=== PATIENT | female | born 1940 | race Caucasian/White ===

== ENCOUNTER 2017-08-07 06:54 | Day surgery (SDC) | payer BC, MEDICARE ==
[~2017-08-07 06:54] MED LIST: Cefuroxime 10 MG/ML SYRINGE EYELF SCH; Lidocaine 1% PF 2 ML SDV INJECT SCH; Pilocarpine 4% Ophth Soln 15 ML Bot EYELF SCH
[2017-08-07] MEDS: Polymyxin B/Trimethoprim 10 ML Bottle EYELF SCH ×3 (07:06→08:31)
[2017-08-07] MEDS: Brimonidine 0.2% Ophth Soln 5 ML Bottle EYELF SCH ×3 (07:11→08:31)
[2017-08-07] MEDS: Phenylephrine 2.5% Ophth Soln 2 ML Bot EYELF SCH ×5 (07:16→08:09)
[2017-08-07] MEDS: Tropicamide 1% Ophth Soln 3 ML Bottle EYELF SCH ×4 (07:21→07:55)
--- NOTE | 2017-08-07 07:46 | PCM.PREANE ---
Preanesthetic Assessment - Procedure Proposed Procedure: Left eye cataract extraction - Anesthesia/Transfusion/Family Hx Anesthesia History: Prior Anesthesia Without Reaction Family History of Anesthesia Reaction: No Transfusion History: No Prior Transfusion(s) - Review of Systems General: No Symptoms Pulmonary: No Symptoms Cardiovascular: No Symptoms Gastrointestinal: No Symptoms Neurological: No Symptoms Other: Reports: None - Physical Assessment NPO Status Date: 08/06/17 NPO Status Time: 20:00 O2 Sat by Pulse Oximetry: 98 Respiratory Rate: 16 Vital Signs: Last Vital Signs Temp 36.2 C 08/07/17 07:00 Pulse 59 L 08/07/17 07:00 Resp 16 08/07/17 07:00 BP 194/82 H 08/07/17 07:00 Pulse Ox 98 08/07/17 07:00 Height: 1.52 m Weight: 74.389 kg ASA Class: 2 Mental Status: Alert & Oriented x3 Airway Class: Mallampati = 2 Dentition: Reports: Missing Tooth/Teeth Thyro-Mental Finger Breadths: 3 Mouth Opening Finger Breadths: 3 ROM/Head Extension: Full Lungs: Clear to Auscultation, Normal Respiratory Effort Cardiovascular: Regular Rate, Regular Rhythm - Allergies Allergies/Adverse Reactions: Allergies Allergy/AdvReac Type Severity Reaction Status Date / Time No Known Allergies Allergy Verified 08/05/17 10:02 - Blood Blood Available: No Product(s) Available: None - Anesthesia Plan Pre-Op Medication Ordered: None - Acknowledgements Anesthesia Type Planned: MAC Pt an Appropriate Candidate for the Planned Anesthesia: Yes Alternatives and Risks of Anesthesia Discussed w Pt/Guardian: Yes Pt/Guardian Understands and Agrees with Anesthesia Plan: Yes PreAnesthesia Questionnaire - HOME MEDS Home Medications: Home Meds Multivitamin [Multivitamins] 1 cap PO DAILY 08/06/17 [History] - CURRENT (IN HOUSE) MEDS Current Meds: Current Medications Brimonidine Tartrate (Alphagan 0.2% Ophth Soln) 0 ml EYELF ASDIRECTED CIRILO Stop: 08/07/17 18:00 Last Admin: 08/07/17 07:11 Dose: 1 drop Cefuroxime Sodium (Zinacef) 0 mg EYELF ASDIRECTED CIRILO Stop: 08/07/17 18:00 Lidocaine HCl (Xylocaine-Mpf 1%) 10 ml INJECT ASDIRECTED CIRILO Stop: 08/07/17 18:00 Phenylephrine HCl (Ti-Synephrine 2.5% Ophth Soln) 0 ml EYELF ASDIRECTED CIRILO Stop: 08/07/17 18:00 Last Admin: 08/07/17 07:34 Dose: 1 drop Pilocarpine HCl (Pilocar 4% Ophth Soln) 0 ml EYELF ASDIRECTED CIRILO Stop: 08/07/17 18:00 Polymyxin/Trimethoprim Sulfate (Polytrim Ophth Soln) 0 ml EYELF ASDIRECTED CIRILO Stop: 08/07/17 18:00 Last Admin: 08/07/17 07:43 Dose: 1 drop Tetracaine HCl (Tetracaine 0.5% Steri-Unit Lizzie) 0 ml EYELF ASDIRECTED CIRILO Stop: 08/07/17 18:00 Tropicamide (Mydriacyl 1% Ophth Soln) 0 ml EYELF ASDIRECTED CIRILO Stop: 08/07/17 18:00 Last Admin: 08/07/17 07:38 Dose: 1 drop
[2017-08-07] MEDS: Tetracaine HCl/PF 0.5% 4 ML Bottle EYELF SCH ×2 (08:04→08:20)
--- NOTE | 2017-08-07 08:38 | PCM48HPAN ---
Post Anesthesia Note - EVALUATION WITHIN 48HRS OF ANESTHETIC Vital Signs in Normal Range: Yes Patient Participated in Evaluation: Yes Respiratory Function Stable: Yes Airway Patent: Yes Cardiovascular Function Stable: Yes Hydration Status Stable: Yes Pain Control Satisfactory: Yes Nausea and Vomiting Control Satisfactory: Yes Mental Status Recovered: Yes
== END 2017-08-07 08:42 | disposition home or self-care (01) ==
LOC: JD.SDS 06:54
PROVIDERS: ATTEND Ophthalmology
DX: H25.813 Combined forms of age-related cataract, bilateral (principal); H35.363 Drusen (degenerative) of macula, bilateral; H35.3131 Nonexudative age-related macular degeneration, bilateral, early dry stage; H02.834 Dermatochalasis of left upper eyelid; H02.831 Dermatochalasis of right upper eyelid; H16.103 Unspecified superficial keratitis, bilateral; H16.223 Keratoconjunctivitis sicca, not specified as Sjogren's, bilateral; Z79.899 Other long term (current) drug therapy
CPT/HCPCS: 66984; C1780; J0697; J2001; A9270-GY

== ENCOUNTER 2017-10-09 07:01 | Day surgery (SDC) | payer BC, MEDICARE ==
[~2017-10-09 07:01] MED LIST changes: -Cefuroxime 10 MG/ML SYRINGE EYELF SCH; +Cefuroxime 10 MG/ML SYRINGE EYERT SCH; -Pilocarpine 4% Ophth Soln 15 ML Bot EYELF SCH; +Pilocarpine 4% Ophth Soln 15 ML Bot EYERT SCH; +Tropicamide 1% Ophth Soln 3 ML Bottle EYERT SCH
--- NOTE | 2017-10-09 07:45 | PCM.PREANE ---
Preanesthetic Assessment - Procedure Proposed Procedure: Right eye cataract extraction with IOL - Anesthesia/Transfusion/Family Hx Anesthesia History: Prior Anesthesia Without Reaction Family History of Anesthesia Reaction: No Transfusion History: No Prior Transfusion(s) - Review of Systems General: No Symptoms Pulmonary: No Symptoms Cardiovascular: No Symptoms Gastrointestinal: No Symptoms Neurological: No Symptoms Other: Reports: None - Physical Assessment NPO Status Date: 10/08/17 NPO Status Time: 21:00 Pulse: 52 O2 Sat by Pulse Oximetry: 98 Respiratory Rate: 16 Blood Pressure: 181/80 Temperature: 36.1 C Height: 1.52 m Weight: 74.389 kg ASA Class: 2 Mental Status: Alert & Oriented x3 Airway Class: Mallampati = 3 Dentition: Reports: Dentures (upper and lower ) Thyro-Mental Finger Breadths: 3 Mouth Opening Finger Breadths: 3 ROM/Head Extension: Full Lungs: Clear to Auscultation, Normal Respiratory Effort Cardiovascular: Regular Rate, Regular Rhythm - Allergies Allergies/Adverse Reactions: Allergies Allergy/AdvReac Type Severity Reaction Status Date / Time No Known Allergies Allergy Verified 10/08/17 13:19 - Blood Blood Available: No Product(s) Available: None - Anesthesia Plan Pre-Op Medication Ordered: None - Acknowledgements Anesthesia Type Planned: MAC Pt an Appropriate Candidate for the Planned Anesthesia: Yes Alternatives and Risks of Anesthesia Discussed w Pt/Guardian: Yes Pt/Guardian Understands and Agrees with Anesthesia Plan: Yes PreAnesthesia Questionnaire - HOME MEDS Home Medications: Home Meds Multivitamin [Multivitamins] 1 cap PO DAILY 08/06/17 [History] - CURRENT (IN HOUSE) MEDS Current Meds: Current Medications Brimonidine Tartrate (Alphagan 0.2% Ophth Soln) 0 ml EYERT ASDIRECTED CIRILO Stop: 10/09/17 18:00 Cefuroxime Sodium (Zinacef) 0 mg EYERT ASDIRECTED CIRILO Stop: 10/09/17 18:00 Lidocaine HCl (Xylocaine-Mpf 1%) 0 ml INJECT ASDIRECTED CIRILO Stop: 10/09/17 18:00 Phenylephrine HCl (Ti-Synephrine 2.5% Ophth Soln) 0 ml EYERT ASDIRECTED CIRILO Stop: 10/09/17 18:00 Pilocarpine HCl (Pilocar 4% Ophth Soln) 0 ml EYERT ASDIRECTED CIRILO Stop: 10/09/17 18:00 Polymyxin/Trimethoprim Sulfate (Polytrim Ophth Soln) 0 ml EYERT ASDIRECTED CIRILO Stop: 10/09/17 18:00 Tetracaine HCl (Tetracaine 0.5% Steri-Unit Lizzie) 0 ml EYERT ASDIRECTED CIRILO Stop: 10/09/17 18:00 Tropicamide (Mydriacyl 1% Ophth Soln) 0 ml EYERT ASDIRECTED CIRILO Stop: 10/09/17 18:00 Discontinued Medications Tropicamide (Mydriacyl 1% Ophth Soln) 0 ml EYERT ASDIRECTED CIRILO Stop: 10/09/17 18:00
[2017-10-09] MEDS: Polymyxin B/Trimethoprim 10 ML Bottle EYERT SCH ×3 (08:01→09:57)
[2017-10-09] MEDS: Brimonidine 0.2% Ophth Soln 5 ML Bottle EYERT SCH ×3 (08:06→09:57)
[2017-10-09] MEDS: Phenylephrine 2.5% Ophth Soln 2 ML Bot EYERT SCH ×5 (08:11→09:38)
[2017-10-09] MEDS: Tropicamide 1% Ophth Soln 15 ML Bottle EYERT SCH ×4 (08:17→09:01)
[2017-10-09] MEDS: Tetracaine HCl/PF 0.5% 4 ML Bottle EYERT SCH ×2 (09:27→09:48)
== END 2017-10-09 10:18 | disposition home or self-care (01) ==
LOC: JD.SDS 07:01
PROVIDERS: ATTEND Ophthalmology
DX: H25.811 Combined forms of age-related cataract, right eye (principal); H02.834 Dermatochalasis of left upper eyelid; H02.831 Dermatochalasis of right upper eyelid; Z79.899 Other long term (current) drug therapy; Z98.42 Cataract extraction status, left eye; Z96.1 Presence of intraocular lens
CPT/HCPCS: 66984; C1780; J0697; A9270-GY; J2001

== ENCOUNTER 2018-08-15 09:04 | Emergency (ER) | payer BC, MEDICARE ==
[2018-08-15] MEDS ORDERED: Ondansetron 4 MG/2 ML SDV IVPUSH ONE (09:46)
[2018-08-15] MEDS ORDERED: Sodium Chloride 0.9% 10 ML Syringe FLUSH PRN (09:46)
[2018-08-15] MEDS ORDERED: Sodium Chloride 0.9% 500 ML IV SCH (10:00)
--- NOTE | 2018-08-15 12:12 | EDM.PDOC ---
ED HPI GENERAL MEDICAL PROBLEM - General Chief Complaint: Neurological Problem Stated Complaint: DIZZY Time Seen by Provider: 08/15/18 09:21 Source of Information: Reports: Patient History Limitations: Reports: No Limitations - History of Present Illness INITIAL COMMENTS - FREE TEXT/NARRATIVE: The patient presents with dizziness. This started on . She says every time she gets up to move around things start spinning. She has nausea with it but no vomiting but she has not been eating or drinking much since then. She has no headache but she does have right ear pain. She has been putting an oil in that right ear. She has no headache, fever, chills, cough, chest pain, shortness of breath, abdominal pain, dysuria or hematuria. She has no diarrhea. She has never had dizziness like this before. She has not been able to work since the dizziness started. 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 Onset: Gradual Duration: Day(s): (3) Location: Reports: Other (right ear) Quality: Reports: Ache Severity: Mild Improves with: Reports: None Worsens with: Reports: None Associated Symptoms: Reports: Nausea/Vomiting. Denies: Chest Pain, Cough, Fever /Chills, Headaches, Shortness of Breath - Related Data Allergies Allergy/AdvReac Type Severity Reaction Status Date / Time No Known Allergies Allergy Verified 08/15/18 09:21 Home Meds: Home Meds Multivitamin [Multivitamins] 1 cap PO DAILY 08/06/17 [History] Past Medical History HEENT History: Reports: Cataract Other HEENT History: dentures upper and lower Other Musculoskeletal History: left first digit - Past Surgical History HEENT Surgical History: Reports: Cataract Surgery Female Surgical History: Reports: Hysterectomy Social & Family History - Tobacco Use Smoking Status *Q: Never Smoker Second Hand Smoke Exposure: No - Caffeine Use Caffeine Use: Reports: None - Recreational Drug Use Recreational Drug Use: No ED ROS GENERAL - Review of Systems Review Of Systems: See Below Constitutional: Reports: No Symptoms HEENT: Reports: Ear Pain (right) Respiratory: Reports: No Symptoms Cardiovascular: Reports: No Symptoms Endocrine: Reports: No Symptoms GI/Abdominal: Reports: Nausea. Denies: Abdominal Pain, Diarrhea, Vomiting : Reports: No Symptoms Musculoskeletal: Reports: No Symptoms Skin: Reports: No Symptoms Neurological: Reports: Dizziness. Denies: Headache ED EXAM, NEURO - Physical Exam Exam: See Below Exam Limited By: No Limitations General Appearance: Alert, No Apparent Distress Eye Exam: Right Eye: Nystagmus Ears: Normal External Exam, Normal Canal, Other (Mild fluid behind the right TM with no erythema) Nose: Normal Inspection Head Exam: Atraumatic, Normocephalic Neck: Normal Inspection Respiratory/Chest: No Respiratory Distress, Lungs Clear, Normal Breath Sounds Cardiovascular: Regular Rate, Rhythm, No Edema, No Murmur GI/Abdominal: Soft, Non-Tender, No Organomegaly, No Mass Neurological: Alert, No Motor/Sensory Deficits, Oriented x 3 Back Exam: Normal Inspection Extremities: Normal Inspection Skin Exam: Warm, Dry EKG INTERPRETATION EKG Date: 08/15/18 Time: 09:54 Rhythm: NSR Rate (Beats/Min): 68 [place]: Normal P-Wave: Present QRS: Normal ST-T: Normal QT: Normal EKG Interpretation Comments: Q waves in the inferior leads Course - Vital Signs Last Recorded V/S: Last Vital Signs Temp 97.8 F 08/15/18 09:19 Pulse 71 08/15/18 09:19 Resp 16 08/15/18 09:19 BP 142/72 H 08/15/18 09:19 Pulse Ox 96 08/15/18 09:19 - Orders/Labs/Meds Orders: Active Orders 24 hr Category Date Time Status Cardiac Monitoring [RC] . DIRECTED Care 08/15/18 09:46 Active EKG Documentation Completion [RC] STAT Care 08/15/18 09:47 Active Peripheral IV Care [RC] . DIRECTED Care 08/15/18 09:47 Active Head wo Cont [CT] Stat Exams 08/15/18 09:48 Taken CULTURE BLOOD [BC] Stat Lab 08/15/18 12:05 Ordered CULTURE BLOOD [BC] Stat Lab 08/15/18 12:05 Ordered LACTIC ACID [CHEM] Stat Lab 08/15/18 12:05 Ordered Sodium Chloride 0.9% [Normal Saline] 1,000 ml Med 08/15/18 12:15 Active IV ASDIRECTED Sodium Chloride 0.9% [Normal Saline] 500 ml Med 08/15/18 10:00 Active IV .BOLUS Sodium Chloride 0.9% [Saline Flush] Med 08/15/18 09:46 Active 10 ml FLUSH ASDIRECTED PRN Blood Culture x2 Reflex Set [OM.PC] Stat [facility] 08/15/18 12:05 Ordered ED Antiemetic Medication Reflex [OM.PC] Stat Ot 08/15/18 09:47 Ordered Peripheral IV Insertion Adult [OM.PC] Stat Ot 08/15/18 09:46 Ordered Medication Orders Sodium Chloride (Normal Saline) 500 mls @ 1,000 mls/hr IV .BOLUS CIRILO Last Admin: 08/15/18 10:38 Dose: 1,000 mls/hr Sodium Chloride (Normal Saline) 1,000 mls @ 150 mls/hr IV ASDIRECTED CIRILO Sodium Chloride (Saline Flush) 10 ml FLUSH ASDIRECTED PRN PRN Reason: Keep Vein Open Last Admin: 08/15/18 10:39 Dose: 10 ml Labs: Laboratory Tests 08/15/18 08/15/18 Range/Units 10:11 10:11 WBC 19.00 H (3.98-10.04) K/mm3 RBC 4.32 (3.98-5.22) M/mm3 Hgb 12.7 (11.2-15.7) gm/L Hct 36.3 (34.1-44.9) % MCV 84.0 (79.4-94.8) fl MCH 29.4 (25.6-32.2) pg MCHC 35.0 (32.2-35.5) g/dl RDW Std Deviation 42.7 (36.4-46.3) fL Plt Count 152 L (182-369) K/mm3 MPV 11.9 (9.4-12.3) fl Neut % (Auto) 83.1 H (34.0-71.1) % Lymph % (Auto) 5.1 L (19.3-51.7) % Simpson % (Auto) 4.7 (4.7-12.5) % Eos % (Auto) 1.3 (0.7-5.8) Baso % (Auto) 0.2 (0.1-1.2) % Neut # (Auto) 15.79 H (1.56-6.13) K/mm3 Lymph # (Auto) 0.97 L (1.18-3.74) K/mm3 Simpson # (Auto) 0.89 H (0.24-0.36) K/mm3 Eos # (Auto) 0.24 (0.04-0.36) K/mm3 Baso # (Auto) 0.04 (0.01-0.08) K/mm3 Manual Slide Review Abnormal smear Sodium 135 L (136-145) mEq/L Potassium 3.9 (3.5-5.1) mEq/L Chloride 98 (98-107) mEq/L Carbon Dioxide 22 (21-32) mEq/L Anion Gap 18.9 H (5-15) BUN 93 H (7-18) mg/dL Creatinine 6.5 H (0.55-1.02) mg/dL Est Cr Clr Drug Dosing 4.96 mL/min Estimated GFR (MDRD) 6 (>60) mL/min BUN/Creatinine Ratio 14.3 (14-18) Glucose 122 H (83-115) mg/dL Calcium 8.8 (8.5-10.1) mg/dL Total Bilirubin 0.9 (0.2-1.0) mg/dL AST 32 (15-37) U/L ALT 37 (14-59) U/L Alkaline Phosphatase 162 H (46-116) U/L Troponin I < 0.017 (0.00-0.056) ng/mL Total Protein 6.6 (6.4-8.2) g/dl Albumin 2.5 L (3.4-5.0) g/dl Globulin 4.1 gm/dL Albumin/Globulin Ratio 0.6 L (1-2) Meds: Medications Generic Name Dose Route Start Last Admin Trade Name Freq PRN Reason Stop Dose Admin Sodium Chloride 500 mls @ 1,000 mls/hr 08/15/18 10:00 08/15/18 10:38 Normal Saline IV 1,000 mls/hr .BOLUS CIRILO Administration Sodium Chloride 1,000 mls @ 150 mls/hr 08/15/18 12:15 Normal Saline IV ASDIRECTED CIRILO Sodium Chloride 10 ml 08/15/18 09:46 08/15/18 10:39 Saline Flush FLUSH 10 ml ASDIRECTED PRN Administration Keep Vein Open Discontinued Medications Generic Name Dose Route Start Last Admin Trade Name Freq PRN Reason Stop Dose Admin Meclizine HCl 25 mg 08/15/18 09:48 08/15/18 10:39 Antivert PO 08/15/18 09:49 25 mg ONETIME ONE Administration Ondansetron HCl 4 mg 08/15/18 09:46 08/15/18 10:39 Zofran IVPUSH 08/15/18 09:47 4 mg ONETIME ONE Administration - Re-Assessments/Exams Free Text/Narrative Re-Assessment/Exam: 08/15/18 12:17 I ordered an IV NS 1L bolus, EKG, zofran 4mg IV, antivert 25mg by mouth, CT of her head and labs. Her EKG shows a NSR with Q waves in the inferior leads. The CT of her head shows senescent changes but nothing acute. Her WBC is elevated at 19. Her Na is a little low at 135. Her K was normal at 3.9. Her anion gap is elevated at 18.9. Her BUN is elevated at 93. Her creatinine is very elevated at 6.5. Her GFR is very low at 6. Her glucose is elevated at 122. Her alk phos is elevated at 162. Her troponin is negative. She is in renal failure. She last urinated this morning before coming in. She has not urinated much for the past couple days. She has never had a history of kidney problems. She has no labs here for me to compare to. I feel she needs to be admitted. I called our hospitalist Dr Amezcua and he felt the patient would be better served in [place] where they have nephrology. I called [facility] in [place] and talked with the hospitalist Dr Glaser and he accepted the patient. I did order a lactic acid and blood cultures. I will try to get a UA before she leaves. Departure - Departure Time of Disposition: 12:30 Disposition: DC/Tfer to Acute Hospital 02 Condition: Fair Clinical Impression: Dizziness Renal failure Qualifiers: Renal failure chronicity: acute Acute renal failure type: unspecified Qualified Code(s): N17.9 - Acute kidney failure, unspecified Leukocytosis Qualifiers: Leukocytosis type: unspecified Qualified Code(s): D72.829 - Elevated white blood cell count, unspecified - Discharge Information Referrals: PCP,None [Primary Care Provider] - - My Orders Last 24 Hours: My Active Orders 08/15/18 09:46 Cardiac Monitoring [RC] . DIRECTED Sodium Chloride 0.9% [Saline Flush] 10 ml FLUSH ASDIRECTED PRN Peripheral IV Insertion Adult [OM.PC] Stat 08/15/18 09:47 EKG Documentation Completion [RC] STAT Peripheral IV Care [RC] . DIRECTED ED Antiemetic Medication Reflex [OM.PC] Stat 08/15/18 09:48 Head wo Cont [CT] Stat 08/15/18 10:00 Sodium Chloride 0.9% [Normal Saline] 500 ml IV .BOLUS 08/15/18 12:05 CULTURE BLOOD [BC] Stat CULTURE BLOOD [BC] Stat LACTIC ACID [CHEM] Stat Blood Culture x2 Reflex Set [OM.PC] Stat 08/15/18 12:15 Sodium Chloride 0.9% [Normal Saline] 1,000 ml IV ASDIRECTED - Assessment/Plan Last 24 Hours: My Active Orders 08/15/18 09:46 Cardiac Monitoring [RC] . DIRECTED Sodium Chloride 0.9% [Saline Flush] 10 ml FLUSH ASDIRECTED PRN Peripheral IV Insertion Adult [OM.PC] Stat 08/15/18 09:47 EKG Documentation Completion [RC] STAT Peripheral IV Care [RC] . DIRECTED ED Antiemetic Medication Reflex [OM.PC] Stat 08/15/18 09:48 Head wo Cont [CT] Stat 08/15/18 10:00 Sodium Chloride 0.9% [Normal Saline] 500 ml IV .BOLUS 08/15/18 12:05 CULTURE BLOOD [BC] Stat CULTURE BLOOD [BC] Stat LACTIC ACID [CHEM] Stat Blood Culture x2 Reflex Set [OM.PC] Stat 08/15/18 12:15 Sodium Chloride 0.9% [Normal Saline] 1,000 ml IV ASDIRECTED
[2018-08-15] MEDS ORDERED: Sodium Chloride 0.9% 1,000 ML IV SCH (12:15)
--- NOTE | 2018-08-17 09:07 | CT ---
Head CT Technique: Multiple axial sections through the brain were obtained. Intravenous contrast was not utilized. Comparison: No prior intracranial imaging is available. Findings: Ventricles along with basal cisterns and sulci over the convexities are within normal limits. Minimal areas of diminished density are seen within the periventricular white matter compatible with slight small vessel ischemic demyelination change. No other abnormal parenchymal densities are seen. No evidence of intracranial hemorrhage. No midline shift or mass effect is seen. Bone window settings were reviewed which show the visualized sinuses to appear clear. No acute calvarial abnormality is seen. Impression: 1. Minimal senescent change. 2. No acute intracranial abnormality is appreciated. Diagnostic code #2 I agree with preliminary report from [facility], finalized on 08/15/18, 12:13 PM Central Time
== END 2018-08-15 13:20 ==
LOC: JD.ED 09:04
DX: N17.9 Acute kidney failure, unspecified (principal); D72.829 Elevated white blood cell count, unspecified; R42 Dizziness and giddiness; Z98.49 Cataract extraction status, unspecified eye; Z90.710 Acquired absence of both cervix and uterus
CPT/HCPCS: 36415; 70450; 80053; 81001; 84484; 85025; 87086; 87088; 87186; 93005; 96361; 96374; 99285; A9270; J2405; J7040; 93010

== ENCOUNTER 2020-04-22 04:56 | Emergency (ER) | payer BC ==
[2020-04-22] MEDS ORDERED: Ondansetron 4 MG/2 ML SDV IVPUSH ONE (05:12)
[2020-04-22] MEDS ORDERED: HYDROmorphone 0.5 MG/0.5 ML Syringe IVPUSH ONE ×2 (05:12→06:17)
[2020-04-22] MEDS ORDERED: Sodium Chloride 0.9% 1,000 ML IV SCH (05:15)
--- NOTE | 2020-04-22 05:18 | EDM.PDOC ---
ED HPI GENERAL MEDICAL PROBLEM - General Chief Complaint: Lower Extremity Injury/Pain Stated Complaint: [facility] Time Seen by Provider: 04/22/20 04:56 Source of Information: Reports: Patient History Limitations: Reports: No Limitations - History of Present Illness INITIAL COMMENTS - FREE TEXT/NARRATIVE: Mrs. Tarango is a most pleasant 80-year-old woman who is now brought to the ED by EMS after falling at home, injuring her right hip. She states that her right leg gave out while she was returning from the bathroom early this morning, causing her to fall onto a carpeted floor. She had immediate pain in her right hip and was unable to get up. She called out to her son, who came to her immediately. No prior right hip injury, and the patient denies any other in juries elsewhere, including to her head, buttocks, knees, wrists, etc. She tells me that EMS did not give her any pain medication. The patient's last oral intake was around 17:00 MST last evening. Here in the ED, the patient's initial BP is found to be elevated at 167/90, otherwise, she is hemodynamically stable, afebrile, saturating 97% on room air. The patient tells me that she has not been feeling well after she received a COVID vaccine, otherwise, she denies having a recent fever, chills, sore throat, ear pain, nasal or sinus congestion, cough, dyspnea, chest pain, palpitations, nausea, vomiting, constipation, diarrhea, abdominal pain, urinary symptoms, recent weight gain or weight loss, recent bloody bowel movements or black bowel movements, recent joint aches, headaches, or rashes. The patient's PCP is Dr. Edy Casillas. She states that she has already received an influenza vaccine this season. Right Hip Pain Score (Numeric/FACES): 8 - Related Data Allergies Allergy/AdvReac Type Severity Reaction Status Date / Time No Known Allergies Allergy Verified 04/22/20 05:07 Home Meds: Home Meds Multivitamin [Multivitamins] 1 cap PO DAILY 08/06/17 [History] Past Medical History HEENT History: Reports: Other (See Below) (Dentures) Cardiovascular History: Reports: Hypertension Musculoskeletal History: Reports: Gout, Osteoarthritis Endocrine/Metabolic History: Reports: Hypothyroidism, Obesity/BMI 30+, Vitamin D Deficiency - Past Surgical History HEENT Surgical History: Reports: Cataract Surgery (bilateral), Oral Surgery (dental extractions) Female Surgical History: Reports: Hysterectomy Social & Family History - Tobacco Use Tobacco Use Status *Q: Former Tobacco User Years of Tobacco use: 22 Packs/Tins Daily: 0.1 Month/Year Tobacco Last Used: Quit 1979 - Caffeine Use Caffeine Use: Reports: None - Alcohol Use Alcohol Use History: No - Recreational Drug Use Recreational Drug Use: No - Living Situation & Occupation Living situation: Reports: , with Family (Son) Occupation: Employed ([employer]) Review of Systems - Review of Systems Review Of Systems: Comprehensive ROS is negative, except as noted in HPI. ED EXAM, GENERAL - Physical Exam Exam: See Below Exam Limited By: No Limitations General Appearance: Alert, WD/WN, Mild Distress (appears uncomfortable) Eye Exam: Bilateral Eye: EOMI, Normal Inspection Ears: Normal External Exam, Hearing Grossly Normal Nose: Normal Inspection Throat/Mouth: Normal Inspection, Normal Lips, Normal Voice, No Airway Compromise Head: Atraumatic, Normocephalic Neck: Normal Inspection, Full Range of Motion Respiratory/Chest: No Respiratory Distress, Lungs Clear, Normal Breath Sounds, No Accessory Muscle Use Cardiovascular: Normal Peripheral Pulses, Regular Rate, Rhythm, No Gallop, No JVD, No Murmur, No Rub Peripheral Pulses: 3+: Radial (L), Radial (R) GI/Abdominal: Normal Bowel Sounds, Soft, Non-Tender, No Organomegaly, No Distention, No Abnormal Bruit, No Mass Back Exam: Normal Inspection, Full Range of Motion, NT Extremities: Normal Capillary Refill, Other (The right lower extremity is foreshortened approximately 2 cm compared to the left, and there is mild external rotation of the right foot. The patient reports tenderness to palpation of the anterior and lateral right hip, although not to the posterior. No pain with either traction or compression of the right lower extremity, nor with mild internal and external rotation of the right foot, however, the patient does complain of pain with an attempt at flexion of the right hip after a few degrees. Neurovascular status of the right lower extremity is intact.) Neurological: Alert, Oriented, Normal Cognition, No Motor/Sensory Deficits Psychiatric: Normal Affect Skin Exam: Warm, Dry, Intact, Normal Color, No Rash Course - Vital Signs Last Recorded V/S: Last Vital Signs Temp 36.7 C 04/22/20 05:02 Pulse 70 04/22/20 05:02 Resp 17 04/22/20 05:02 BP 167/90 H 04/22/20 05:02 Pulse Ox 97 04/22/20 05:02 - Orders/Labs/Meds Orders: Active Orders 24 hr Category Date Time Status Insert Yu Catheter [Insert Urinary Catheter] [OM.PC] Care 04/22/20 06:15 Ordered Q24H Urinary Catheter Assessment [RC] ASDIRECTED Care 04/22/20 06:08 Ordered Hip Min 2V or 3V w Pelvis Rt [CR] Stat Exams 04/22/20 05:11 Taken CORONAVIRUS COVID-19 JESSENIA [MOLEC] Stat Lab 04/22/20 06:13 Ordered Sodium Chloride 0.9% [Normal Saline] 1,000 ml Med 04/22/20 05:15 Active IV ASDIRECTED Medication Orders Sodium Chloride (Normal Saline) 1,000 mls @ 100 mls/hr IV ASDIRECTED CIRILO Last Admin: 04/22/20 05:16 Dose: 100 mls/hr Documented by: SONIDO Bonillas: Medications Generic Name Dose Route Start Last Admin Trade Name Freq PRN Reason Stop Dose Admin Sodium Chloride 1,000 mls @ 100 mls/hr 04/22/20 05:15 04/22/20 05:16 Normal Saline IV 100 mls/hr ASDIRECTED CIRILO Administration Discontinued Medications Generic Name Dose Route Start Last Admin Trade Name Freq PRN Reason Stop Dose Admin Hydromorphone HCl 0.5 mg 04/22/20 05:12 04/22/20 05:16 Dilaudid IVPUSH 04/22/20 05:13 0.5 mg ONETIME ONE Administration Hydromorphone HCl 0.5 mg 04/22/20 06:17 Dilaudid IVPUSH 04/22/20 06:18 ONETIME ONE Ondansetron HCl 4 mg 04/22/20 05:12 04/22/20 05:16 Zofran IVPUSH 04/22/20 05:13 4 mg ONETIME ONE Administration - Re-Assessments/Exams Free Text/Narrative Re-Assessment/Exam: 04/22/20 05:13 The patient has likely fractured her right hip. I have ordered x-rays to evaluate, and in the meantime, she will be given some IV Dilaudid, IV Zofran, and IV fluid. We will keep her NPO. 04/22/20 06:02 6-view radiographs of the right hip and pelvis appear to demonstrate a comminuted intertrochanteric fracture of the right hip. There is also bilateral hip arthritis, worse on the right than the left. No pelvic fractures are seen. Formal read per the Radiologist pending. 04/22/20 06:05 X-ray results discussed with the patient. A Yu catheter has been placed. She states that her pain is currently adequately controlled following the Dilaudid. Unfortunately, I do not have any orthopedic coverage today, therefore the patient will need to be transferred to [place]. She prefers [facility]. Have pushed the x-ray images to [facility]. 04/22/20 06:14 Case discussed with Herminia at [facility], at 06:08. Case then discussed with Dr. Lao, Orthopedic Surgeon on-call at [facility], at 06:12. He accepted the patient for transfer to the medical floor, however, if the patient takes a turn for the worse, she is to go to their ED first. The patient will be transported by ground ambulance. Departure - Departure Time of Disposition: 06:16 Disposition: DC/Tfer to Acute Hospital 02 Condition: Fair Clinical Impression: Closed right hip fracture - Discharge Information *PRESCRIPTION DRUG MONITORING PROGRAM REVIEWED*: Not Applicable *COPY OF PRESCRIPTION DRUG MONITORING REPORT IN PATIENT SUE: Not Applicable Referrals: Edy Mahmood MD [Physician] - Forms: ED Department Discharge Sepsis Event Note (ED) - Evaluation Sepsis Screening Result: No Definite Risk - Focused Exam Vital Signs: Vital Signs Temp Pulse Resp BP Pulse Ox 04/22/20 05:02 36.7 C 70 17 167/90 H 97 - My Orders Last 24 Hours: My Active Orders 04/22/20 05:11 Hip Min 2V or 3V w Pelvis Rt [CR] Stat 04/22/20 05:15 Sodium Chloride 0.9% [Normal Saline] 1,000 ml IV ASDIRECTED 04/22/20 06:08 Urinary Catheter Assessment [RC] ASDIRECTED 04/22/20 06:13 CORONAVIRUS COVID-19 JESSENIA [MOLEC] Stat 04/22/20 06:15 Insert Yu Catheter [Insert Urinary Catheter] [OM.PC] Q24H - Assessment/Plan Last 24 Hours: My Active Orders 04/22/20 05:11 Hip Min 2V or 3V w Pelvis Rt [CR] Stat 04/22/20 05:15 Sodium Chloride 0.9% [Normal Saline] 1,000 ml IV ASDIRECTED 04/22/20 06:08 Urinary Catheter Assessment [RC] ASDIRECTED 04/22/20 06:13 CORONAVIRUS COVID-19 JESSENIA [MOLEC] Stat 04/22/20 06:15 Insert Yu Catheter [Insert Urinary Catheter] [OM.PC] Q24H
--- NOTE | 2020-04-23 10:23 | CR ---
Pelvis and right hip: AP view of the pelvis was obtained as well as AP view of the right hip and crosstable lateral view of the right hip. Slightly angulated intertrochanteric fracture is noted within the right hip. Diffuse joint space narrowing is seen within the right hip. Joint space narrowing is noted within the left hip. Osteoporosis is noted. Diffuse soft tissue swelling is noted on the right side. Impression: 1. Degenerative change within both hips. 2. Mildly angulated intratrochanteric fracture within the right hip. Diagnostic code #5
== END 2020-04-22 07:00 ==
LOC: JD.ED 04:56
DX: S72.101A Unspecified trochanteric fracture of right femur, initial encounter for closed fracture (principal); I10 Essential (primary) hypertension; E66.9 Obesity, unspecified; Z68.30 Body mass index [BMI] 30.0-30.9, adult; Z87.891 Personal history of nicotine dependence; Z20.822 Contact with and (suspected) exposure to COVID-19; W18.30XA Fall on same level, unspecified, initial encounter; Y92.002 Bathroom of unspecified non-institutional (private) residence as the place of occurrence of the external cause
CPT/HCPCS: 51702; 73502; 87635; 96374; 96375; 96376; 99285; J1170; J2405; J7030; U0002

== ENCOUNTER 2021-05-28 06:54 | Day surgery (SDC) | payer BC, MEDICARE, OTHER ==
[~2021-05-28 06:54] MED LIST changes: -Cefuroxime 10 MG/ML SYRINGE EYERT SCH; +Lactated Ringers 1,000 ML IV SCH; -Lidocaine 1% PF 2 ML SDV INJECT SCH; +Lidocaine 1%/Sod Bicarbonate in NS 8.4% 1 ML Syringe IDERM PRN; +Morphine 8 MG, EPINEPHrine 0.3 MG, Cefuroxime 750 MG, Ketorolac 30 MG, Sodium Chloride ... PRN; -Pilocarpine 4% Ophth Soln 15 ML Bot EYERT SCH; +Sodium Chloride 0.9% 10 ML Syringe FLUSH PRN; +Sodium Chloride 0.9% 10 ML Syringe FLUSH SCH; -Tropicamide 1% Ophth Soln 3 ML Bottle EYERT SCH
[2021-05-28] MEDS ORDERED: Lactated Ringers 1,000 ML IV SCH (07:00)
[2021-05-28] MEDS ORDERED: Lidocaine 1% 4 ML ONE (07:21)
[2021-05-28] MEDS ORDERED: Propofol 200 MG/20 ML SDV ONE ×2 (07:21→07:22)
[2021-05-28] MEDS ORDERED: ceFAZolin 1 GM Vial ONE (07:21)
[2021-05-28] MEDS ORDERED: Vancomycin 1 GM SDV ONE (07:23)
[2021-05-28] MEDS ORDERED: ePHEDrine 50 MG/ML SDV ONE (08:38)
[2021-05-28] MEDS ORDERED: Lactated Ringers 1,000 ML ONE ×2 (08:48→10:00)
[2021-05-28] MEDS ORDERED: Ondansetron 4 MG/2 ML SDV IVPUSH PRN (08:58)
[2021-05-28] MEDS ORDERED: diphenhydrAMINE 50 MG/ML SDV IVPUSH PRN (08:58)
[2021-05-28] MEDS ORDERED: fentaNYL 100 MCG/2 ML SDV IVPUSH PRN (08:58)
[2021-05-28] MEDS ORDERED: Acetaminophen/HYDROcodone 325-5 MG Tab PO ONE ×2 (11:00→15:00)
== END 2021-05-28 15:30 | disposition home or self-care (01) ==
LOC: JD.SDS 06:54
PROVIDERS: ATTEND Orthopaedic Surgery
DX: M16.11 Unilateral primary osteoarthritis, right hip (principal); N18.30 Chronic kidney disease, stage 3 unspecified; I12.9 Hypertensive chronic kidney disease with stage 1 through stage 4 chronic kidney disease, or unspecified chronic kidney disease; E03.9 Hypothyroidism, unspecified; M81.0 Age-related osteoporosis without current pathological fracture; E66.9 Obesity, unspecified; E11.22 Type 2 diabetes mellitus with diabetic chronic kidney disease; E79.0 Hyperuricemia without signs of inflammatory arthritis and tophaceous disease; E55.9 Vitamin D deficiency, unspecified; Z79.899 Other long term (current) drug therapy; Z98.890 Other specified postprocedural states; Z87.891 Personal history of nicotine dependence; Z68.30 Body mass index [BMI] 30.0-30.9, adult
CPT/HCPCS: 27130; 73501; 76000; 97110; 97116; 97161; A9270; C1713; C1776; J0171; J0690; J0697; J1885; J2270; J2370; J2704; J3370; J7120; 01214; 99100